=== PATIENT | male | born 1995 | race Caucasian/White ===

== ENCOUNTER 2021-09-24 11:10 | Emergency (ER) | payer BC, SELFPAY ==
--- NOTE | ~2021-09-24 | XR_ITS ---
EXAMINATION: XR chest 1V portable 09/24/2021 12:56 INDICATION: Chest pain PROCEDURE: 2 view chest COMPARISON: No prior studies for comparison. FINDINGS: The lungs are clear. The cardiomediastinal silhouette is within normal limits. There are no pleural effusions. There is no pneumothorax suspected. IMPRESSION: 1: NO ACUTE CARDIOPULMONARY DISEASE. Reviewed, dictated and finalized at location A.
[2021-09-24 11:14] VITALS: BP 101/69; PULSE 81; RESP 16; TEMP 36.9; O2SAT 100
[2021-09-24 11:19] VITALS: O2SAT 100
[2021-09-24 12:06] VITALS: BP 119/89; PULSE 74; RESP 18; O2SAT 100
[2021-09-24 12:07] VITALS: PULSE 74
--- NOTE | 2021-09-24 12:32 | ECG_ITS ---
Measurements Intervals [place] Rate: 82 P: 64 ID: [id number] QRS: 34 QRSD: 82 T: 37 QT: 342 QTc: 401 Interpretive Statements SINUS RHYTHM EARLY RS TRANSITION BORDERLINE ECG NO PREVIOUS ECG AVAILABLE FOR COMPARISON Electronically Signed On 09-24-2021 14:38:55 CDT by Balaji Gifford M.D.
[2021-09-24] MEDS: ASPIRIN 81 MG CHEWABLE TABLET 324 MG PO (12:40)
[2021-09-24 13:06] LABS: Basophils Percent Auto 0.4 % (0.2-1.2); Eosinophils Percent Auto 0.4 % (0-4.4); Hematocrit 46.7 % (42.0-52.0); Immature Granulocyte Absolute 0.02 K/mm3 (0.00-0.031); Immature Granulocyte Percent A 0.4 % (0-0.5); Lymphocytes Absolute Auto 1.83 K/mm3 (0.9-3.2); Lymphocytes Percent Auto 33.2 % (18.3-44.2); Mean Corpuscular HGB Conc 34.3 g/dl (32-36); Mean Corpuscular Hemoglobin 30.7 pg (26-34); Mean Corpuscular Volume 89.5 fl (80-100); Monocytes Absolute Auto 0.7 K/mm3 (0.1-0.6); Monocytes Percent Auto 11.8 % (2.6-8.5); Neutrophils Percent Auto 53.8 % (45.5-73.1); Platelet Count Result 206 k/mm3 (150-375); Red Blood Count 5.22 M/mm3 (4.6-6.20); White Blood Count 5.5 K/mm3 (4.5-10.0)
[2021-09-24 13:13] LABS: Alanine Aminotransferase 14 U/L (6-50); Albumin Level 5.1 g/dL (3.5-5.1); Alkaline Phosphatase 74 U/L (38-126); Anion Gap 13 mmol/L (8-16); Aspartate Amino Transferase 23 U/L (17-59); Bilirubin,Total 0.8 mg/dL (0.2-1.3); Blood Urea Nitrogen 7 mg/dL (9-20); Calcium 9.3 mg/dL (8.4-10.2); Carbon Dioxide 24 mmol/L (22-30); Chloride 106 mmol/L (98-107); Estimated CRCL calculation 161 ml/min; Estimated Glomerular Filt Rate > 60; Glucose 106 mg/dL (65-110); Sodium 143 mmol/L (137-145)
[2021-09-24 13:18] LABS: INR 1.2; Prothrombin Time 14.3 Seconds (11.1-14.7)
[2021-09-24 13:19] LABS: Partial Thromboplastin Time 27.2 SECONDS (22.3-36.8)
[2021-09-24 13:24] LABS: D Dimer < 0.27 ug/mL (<0.48); NT Pro B Type Natriuretic Pept 15 pg/mL (5-100); Troponin I < 0.012 ng/mL (0.000-0.034)
[2021-09-24 13:27] LABS: Appearance Urine Clear (Clear); Bilirubin Urine Negative (Negative); Blood Urine Negative (Negative); Color Urine Yellow (Yellow); Glucose Urine UA Negative (Negative); Ketones Urine 4+ mg/dL (Negative); Leukocyte Esterase Ur Negative LEU/UL (Negative); Nitrate Urine Negative (Negative); Protein Urine Negative (Negative); Specific Grav Ur 1.015 (1.001-1.035); Urobilinogen Urine 0.2 mg/dL (<2.0); pH Urine 8.5 (5.0-9.0)
[2021-09-24 13:28] LABS: RBC Urine 0-2 /hpf (0-2); WBC Urine 0-3 /hpf
[2021-09-24 13:37] LABS: Add Urine Microscopic? YES
--- NOTE | 2021-09-24 14:09 | ED.GENADULT ---
HPI - General Adult General Chief complaint: Chest Pain Stated complaint: COVID+, sob/cp x days Time Seen by Provider: 09/24/21 12:13 History of Present Illness HPI narrative: Patient a 26-year-old gentleman who presents the emergency department with chief complaint of COVID-19 and chest pain. The patient states he an episode today of some chest pain patient states it was sharp and resolved fairly quickly after it started. Patient states he decided to call EMS to be evaluated in the emergency department reports his pain has been gone since then. The patient states he had a bit of a cough with this and reports that he is currently on antivirals for COVID. Related Data Allergies Allergy/AdvReac Type Severity Reaction Status Date / Time No Known Allergies Allergy Verified 09/24/21 12:39 Review of Systems Review of Systems: A 10 system review of systems was completed on the patient and is negative except for what is stated in the HPI. Nursing and ancillary documentation was reviewed. Exam Narrative: GENERAL: Well-appearing, well-nourished, and in no acute distress. HEAD: Normocephalic, atraumatic. EYES: PERRLA and EOMI. ENT: Nares clear, no rhinorrhea or epistaxis. Mucous membranes moist. NECK: Supple. CHEST: Clear to auscultation. No respiratory distress. HEART: Regular rate and rhythm. No murmur heard. Normal peripheral pulses. ABDOMEN: Soft, nontender, nondistended, normal active bowel sounds. EXTREMITIES: Normal range of motion. No edema. SKIN: Warm, dry, no rash. NEURO: No focal deficits. Alert and oriented x3. PSYCH: Normal mood and affect. Course Course Emergency Course: EKG is sinus rhythm rate of [address] elevation or ST depression Vital Signs Vital signs: Vital Signs Temperature 36.9 C 09/24/21 11:14 Pulse Rate 81 09/24/21 11:14 Respiratory Rate 16 09/24/21 11:14 Blood Pressure 101/69 09/24/21 11:14 Pulse Oximetry 100 09/24/21 11:14 Oxygen Delivery Room Air 09/24/21 11:14 Temperature 36.9 C 09/24/21 11:14 Pulse Rate 74 09/24/21 12:07 Respiratory Rate 18 09/24/21 12:06 Blood Pressure 119/89 09/24/21 12:06 Pulse Oximetry 100 09/24/21 12:06 Oxygen Delivery Room Air 09/24/21 11:19 Medical Decision Making Vital Signs Vital Signs: Vital Signs Temperature 36.9 C 09/24/21 11:14 Pulse Rate 81 09/24/21 11:14 Respiratory Rate 16 09/24/21 11:14 Blood Pressure 101/69 09/24/21 11:14 Pulse Oximetry 100 09/24/21 11:14 Oxygen Delivery Room Air 09/24/21 11:14 Temperature 36.9 C 09/24/21 11:14 Pulse Rate 74 09/24/21 12:07 Respiratory Rate 18 09/24/21 12:06 Blood Pressure 119/89 09/24/21 12:06 Pulse Oximetry 100 09/24/21 12:06 Oxygen Delivery Room Air 09/24/21 11:19 Lab Data Result diagrams: 09/24/21 12:43 09/24/21 12:43 Labs: Lab Results 09/24/21 09/24/21 09/24/21 Range/Units 12:43 12:43 12:43 WBC 5.5 (4.5-10.0) K/mm3 RBC 5.22 (4.6-6.20) M/mm3 Hgb 16.0 (14.0-18.0) g/dL Hct 46.7 (42.0-52.0) % MCV 89.5 (80-100) fl MCH 30.7 (26-34) pg MCHC 34.3 (32-36) g/dl RDW 12.0 (11.5-14.5) % Plt Count 206 (150-375) k/mm3 MPV 11.0 H (7.4-10.4) fl Immature Gran % (Auto) 0.4 (0-0.5) % Neut % (Auto) 53.8 (45.5-73.1) % Lymph % (Auto) 33.2 (18.3-44.2) % [place] % (Auto) 11.8 H (2.6-8.5) % Eos % (Auto) 0.4 (0-4.4) % Baso % (Auto) 0.4 (0.2-1.2) % Lymph # (Auto) 1.83 (0.9-3.2) K/mm3 [place] # (Auto) 0.7 H (0.1-0.6) K/mm3 Eos # (Auto) 0.0 (0-0.3) K/mm3 Baso # (Auto) 0.0 (0.0-0.1) K/mm3 Abs Immat Gran (auto) 0.02 (0.00-0.031) K/mm3 Absolute Neuts (auto) 3.0 (1.3-6.7) K/mm3 Absolute Nucleated RBC 0.0 (0.0-0.012) K/mm3 Nucleated RBC % 0.0 (0.0-0.2) % PT 14.3 (11.1-14.7) Seconds INR 1.2 APTT 27.2 (22.3-36.8) SECONDS D-Dimer < 0.27 (<0.48) ug/mL Sodium 143 (137-1
[2021-09-24 14:20] VITALS: BP 123/77; PULSE 87; RESP 18; O2SAT 100
== END 2021-09-24 14:23 | disposition home or self-care (01) ==
PROVIDERS: Emergency Provider Emergency Medicine; PCP Family Medicine
DX: U07.1 COVID-19 (principal); R07.9 Chest pain, unspecified; R94.31 Abnormal electrocardiogram [ECG] [EKG]
CPT/HCPCS: 36415; 71045; 80053; 81001; 83880; 84484; 85025; 85380; 85610; 85730; 93005; 99284; A9270